=== PATIENT | male | born 1950 | race Caucasian/White ===

== ENCOUNTER 2025-04-10 18:23 | Inpatient (IN) | payer MEDICARE ==
[~2025-04-10] VITALS: Ht 187.9 cm; Wt 111.4 kg
[2025-04-10 19:02] VITALS: BP 112/77
[2025-04-10 19:18] LABS: BASO # 0.0 10*3/uL (0.0-0.1); BASO % 0.6 % (0.0-1.0); EOS # 0.1 10*3/uL (0.0-0.4); EOS % 1.2 % (1.0-4.0); MEAN CELL VOLUME 92.3 fl (80.0-94.0); MEAN CORPUSCULAR HGB 29.1 pg (27.0-31.0); MEAN PLATELET VOLUME 10.7 fl (9.6-12.3); MONO # 0.6 10*3/uL (0.1-1.0); MONO % 12.6 % (3.0-9.0); NEUT # 2.4 10*3/uL (2.3-7.9); NEUT % 50.3 % (47.0-73.0); NUCLEATED RED BLOOD CELL 0.0 % (0.0-0.0); NUCLEATED RED BLOOD CELL 0.0 10*3/uL (0.0-0.0); PLATELET COUNT AUTOMATED 118 10*3/uL (130-400); RED CELL DISTRI WIDTH 17.0 % (0-14.5)
[2025-04-10 19:30] LABS: BUN 15 mg/dl (9-23); ETHYL ALCOHOL 4.1 mg/dl (<3)
[2025-04-10 19:35] LABS: BILIRUBIN 1+ (Negative); BLOOD Negative (Negative); CLARITY Clear (Clear); COLOR Dark Yellow (Yellow); KETONE 1+ (Negative); LEUKO ESTERASE 2+ (Negative); NITRITE Negative (Negative); PH 5.5 (4.5-8.0); SPECIFIC GRAVITY >= 1.030 (1.001-1.030); UROBILINOGEN 1.0 E.U./dl (0.0-1.0)
[2025-04-10 19:42] LABS: BACTERIA 1+; MUCOUS 2+; URINE AMPHETAMINES Negative (1000ng/ml); URINE BARBITURATES Negative (200ng/ml); URINE BENZODIAZEPINES Positive (200ng/ml); URINE CANNABINOIDS (THC) Negative (50ng/ml); URINE COCAINE Negative (300ng/ml); URINE METHADONE Negative (300ng/ml); URINE OPIATES Negative (300ng/ml); URINE PHENCYCLIDINE Negative (25ng/ml); WBC 16-20 wbc/hpf (0-5)
[2025-04-10] MEDS ORDERED: Ciprofloxacin Hydrochloride 500 MG TAB PO ONE (20:05)
[2025-04-10] MEDS ORDERED: NAMENDA-5 PO (22:15)
[2025-04-10] MEDS ORDERED: METOPROLOL SUCC50 M1 PO (22:18)
[2025-04-10] MEDS ORDERED: FUROSEMIDE40 MG PO (22:31)
[2025-04-10] MEDS ORDERED: OMEPRAZOLE40 MG PO (22:34)
[2025-04-10] MEDS ORDERED: POTASSIUM CHLO10 ME5 PO (22:35)
[2025-04-10] MEDS ORDERED: ZOLOFT100 MG PO (22:36)
[2025-04-10] MEDS ORDERED: FLOMAX0.4 MG PO (22:37)
[2025-04-10] MEDS ORDERED: VISTARIL25 MG PO (22:38)
[2025-04-10] MEDS ORDERED: WARFARIN2 MG PO ×2 (22:41→22:42)
[2025-04-10] MEDS ORDERED: WELLBUTRIN XL150 MG PO (22:44)
[2025-04-10] MEDS ORDERED: ABILIFY10 MG PO (22:45)
[2025-04-10] MEDS ORDERED: LIPITOR40 MG PO (22:45)
[2025-04-10] MEDS ORDERED: BUPROPION HYDR150 M1 PO (22:46)
[2025-04-10] MEDS ORDERED: EXELON1 EAC2 PO (22:51)
[2025-04-10] MEDS ORDERED: ACETAMINOPHEN 325 MG TAB PO PRN (23:00)
[2025-04-10] MEDS ORDERED: MG-AL HYDROXIDE/SIMETICONE 30 ML UDC PO PRN (23:00)
[2025-04-10] MEDS ORDERED: LORazepam 0.5 MG TAB PO PRN (23:05)
[2025-04-10] MEDS ORDERED: Water, Sterile 10 ML VIAL IM PRN (23:05)
[2025-04-11 00:09] VITALS: BP 138/72
[2025-04-11 06:16] LABS: BASO # 0.0 10*3/uL (0.0-0.1); BASO % 0.8 % (0.0-1.0); EOS # 0.1 10*3/uL (0.0-0.4); EOS % 1.3 % (1.0-4.0); MEAN CELL VOLUME 90.5 fl (80.0-94.0); MEAN CORPUSCULAR HGB 29.1 pg (27.0-31.0); MEAN PLATELET VOLUME 10.6 fl (9.6-12.3); MONO # 0.6 10*3/uL (0.1-1.0); MONO % 11.6 % (3.0-9.0); NEUT # 2.8 10*3/uL (2.3-7.9); NEUT % 51.6 % (47.0-73.0); NUCLEATED RED BLOOD CELL 0.0 % (0.0-0.0); NUCLEATED RED BLOOD CELL 0.0 10*3/uL (0.0-0.0); PLATELET COUNT AUTOMATED 123 10*3/uL (130-400); RED CELL DISTRI WIDTH 17.2 % (0-14.5)
[2025-04-11 07:23] LABS: BUN 13 mg/dl (9-23); SGPT/ALT 26 U/L (5-49)
[2025-04-11 08:14] LABS: VITAMIN D, 25-HYDROXY 21.9 ng/mL (30-100)
[2025-04-11] MEDS ORDERED: DEPAKOTE SPRIN125 MG PO (08:22)
[2025-04-11] MEDS ORDERED: Menthol/Zinc Oxide 4 GM THIN T SCH (09:00)
[2025-04-11] MEDS ORDERED: CEFDINIR 300 MG CAP PO SCH (09:00)
[2025-04-11] MEDS ORDERED: Memantine Hydrochloride 5 MG TAB PO SCH (10:00)
[2025-04-11] MEDS ORDERED: FUROSEMIDE 40 MG TAB PO SCH (10:00)
[2025-04-11] MEDS ORDERED: RIVASTIGMINE 13.3 MG/24 HR TDM T SCH (10:00)
[2025-04-11] MEDS ORDERED: ATORVASTATIN CALCIUM 40 MG TABLET PO SCH (10:00)
[2025-04-11] MEDS ORDERED: METOPROLOL SUCCINATE XR 50 MG TAB PO SCH (10:00)
[2025-04-11] MEDS ORDERED: risperiDONE 0.5 MG TAB PO SCH (10:00)
[2025-04-11 20:00] VITALS: BP 147/108
[2025-04-12 08:37] VITALS: BP 144/96
[2025-04-12] MEDS ORDERED: AQUAPHOR OINTMENT Base 50 GM TUBE T SCH (09:00)
[2025-04-12 10:16] LABS: BUN 16 mg/dl (9-23)
[2025-04-12] MEDS ORDERED: WARFARIN SODIUM 2 MG TAB PO SCH (18:00)
[2025-04-12 20:00] VITALS: BP 10/87
[2025-04-13 08:00] VITALS: BP 116/75
[2025-04-13 08:32] LABS: BUN 25 mg/dl (9-23)
[2025-04-13] MEDS ORDERED: Cholecalciferol 5,000 IU CAP (125 MCG) PO SCH (09:00)
[2025-04-13] MEDS ORDERED: PALIPERIDONE PALMITATE 156 MG INJECTION IM ONE (09:35)
[2025-04-13] MEDS ORDERED: WARFARIN SODIUM 2.5 MG TAB PO SCH (18:00)
[2025-04-13] MEDS ORDERED: WARFARIN SODIUM 2 MG TAB PO SCH (18:00)
[2025-04-13 20:00] VITALS: BP 120/69
[2025-04-14] MEDS ORDERED: Trihexyphenidyl Hydrochlorid 2 MG TAB PO SCH (09:00)
[2025-04-14 09:17] VITALS: BP 105/67
[2025-04-14 20:00] VITALS: BP 145/93
[2025-04-15 06:51] LABS: BUN 24 mg/dl (9-23)
[2025-04-15 08:00] VITALS: BP 136/69
[2025-04-15 20:00] VITALS: BP 116/70
[2025-04-16 08:00] VITALS: BP 100/49
[2025-04-16] MEDS ORDERED: WARFARIN SODIUM 3 MG TAB PO SCH (18:00)
[2025-04-16 20:00] VITALS: BP 93/58
[2025-04-17 06:26] LABS: BUN 22 mg/dl (9-23)
[2025-04-17 08:02] VITALS: BP 95/63
[2025-04-17 20:00] VITALS: BP 104/64
[2025-04-18 08:04] VITALS: BP 104/75
[2025-04-18] MEDS ORDERED: PALIPERIDONE PALMITATE 156 MG INJECTION IM SCH (09:35)
[2025-04-18 20:00] VITALS: BP 104/60
[2025-04-19 06:21] LABS: BASO # 0.1 10*3/uL (0.0-0.1); BASO % 0.8 % (0.0-1.0); EOS # 0.1 10*3/uL (0.0-0.4); EOS % 1.3 % (1.0-4.0); MEAN CELL VOLUME 91.9 fl (80.0-94.0); MEAN CORPUSCULAR HGB 29.5 pg (27.0-31.0); MEAN PLATELET VOLUME 9.9 fl (9.6-12.3); MONO # 0.8 10*3/uL (0.1-1.0); MONO % 13.8 % (3.0-9.0); NEUT # 3.6 10*3/uL (2.3-7.9); NEUT % 59.0 % (47.0-73.0); NUCLEATED RED BLOOD CELL 0.0 % (0.0-0.0); NUCLEATED RED BLOOD CELL 0.0 10*3/uL (0.0-0.0); PLATELET COUNT AUTOMATED 135 10*3/uL (130-400); RED CELL DISTRI WIDTH 17.2 % (0-14.5)
[2025-04-19 06:47] LABS: BUN 23 mg/dl (9-23); SGPT/ALT 32 U/L (5-49)
[2025-04-19] MEDS ORDERED: LORazepam 1 MG TAB PO PRN (18:05)
[2025-04-19] MEDS ORDERED: hydrOXYzine hydrochloride 50 MG/ML VIAL IM PRN (18:05)
[2025-04-19 20:00] VITALS: BP 179/100
[2025-04-19] MEDS ORDERED: VITAMIN D3125 MC1 PO (21:21)
[2025-04-19] MEDS ORDERED: TRIHEXYPHENIDYL2 M3 PO (21:21)
[2025-04-19] MEDS ORDERED: INVEGA SUSTENN156 MG IM (21:21)
[2025-04-19] MEDS ORDERED: RIVASTIGMINE1 EAC2 T (21:21)
[2025-04-19] MEDS ORDERED: NAMENDA-5 PO (21:21)
[2025-04-19 22:08] LABS: BILIRUBIN 1+ (Negative); BLOOD 2+ (Negative); CLARITY Clear (Clear); COLOR Dark Yellow (Yellow); KETONE 1+ (Negative); LEUKO ESTERASE 1+ (Negative); NITRITE Negative (Negative); PH 6.0 (4.5-8.0); SPECIFIC GRAVITY 1.025 (1.001-1.030); UROBILINOGEN 1.0 E.U./dl (0.0-1.0)
[2025-04-19 22:15] LABS: BACTERIA 1+; MUCOUS 2+; RBC 21-30 rbc/hpf (0-2)
[2025-04-20 07:18] LABS: BASO # 0.0 10*3/uL (0.0-0.1); BASO % 0.5 % (0.0-1.0); EOS # 0.0 10*3/uL (0.0-0.4); EOS % 0.5 % (1.0-4.0); MEAN CELL VOLUME 91.7 fl (80.0-94.0); MEAN CORPUSCULAR HGB 29.3 pg (27.0-31.0); MEAN PLATELET VOLUME 10.8 fl (9.6-12.3); MONO # 0.8 10*3/uL (0.1-1.0); MONO % 12.0 % (3.0-9.0); NEUT # 4.7 10*3/uL (2.3-7.9); NEUT % 70.8 % (47.0-73.0); NUCLEATED RED BLOOD CELL 0.0 % (0.0-0.0); NUCLEATED RED BLOOD CELL 0.0 10*3/uL (0.0-0.0); PLATELET COUNT AUTOMATED 139 10*3/uL (130-400); RED CELL DISTRI WIDTH 17.2 % (0-14.5)
[2025-04-20 07:43] LABS: BUN 21 mg/dl (9-23)
[2025-04-20 08:00] VITALS: BP 101/82
[2025-04-20] MEDS ORDERED: Coumadin3 MG PO (11:46)
[2025-04-20] MEDS ORDERED: VITAMIN E 400 IU CAP PO SCH ×2 (14:25→15:46)
[2025-04-20 20:00] VITALS: BP 117/94
[2025-04-20] MEDS ORDERED: Trihexyphenidyl Hydrochlorid 2 MG TAB PO SCH (21:00)
[2025-04-21 08:00] VITALS: BP 153/126
[2025-04-21] MEDS ORDERED: WARFARIN SODIUM 2.5 MG TAB PO SCH (18:00)
[2025-04-21 20:00] VITALS: BP 149/84
[2025-04-21] MEDS ORDERED: RAMELTEON 8 MG TAB PO SCH (21:00)
[2025-04-22 08:00] VITALS: BP 131/96
[2025-04-22 20:00] VITALS: BP 119/86
[2025-04-23 08:00] VITALS: BP 104/83
[2025-04-23] MEDS ORDERED: VITAMIN E180 M1 PO (17:21)
[2025-04-23] MEDS ORDERED: WARFARIN SOD2 MG PO (17:21)
[2025-04-23] MEDS ORDERED: METOPROLOL TART50 M1 PO (17:21)
[2025-04-23] MEDS ORDERED: WARFARIN SODIUM 2 MG TAB PO SCH (18:00)
[2025-04-23 20:00] VITALS: BP 139/89
[2025-04-24] MEDS ORDERED: WARFARIN2 MG PO ×2 (07:32→07:35)
[2025-04-24 08:00] VITALS: BP 99/74
[2025-04-24] MEDS ORDERED: RAMELTEON8 MG PO (08:56)
[2025-04-24] MEDS ORDERED: HYDROXYZINE PAM25 M1 PO (08:56)
== END 2025-04-24 11:12 | DRG 883 ==
LOC: ED 18:23 → 3N 20:14
PROVIDERS: Counselor Professional; Emergency Medicine; Internal Medicine; Registered Nurse; Student in an Organized Health Care Education/Training Program; ADMIT Psychiatry & Neurology Psychiatry; ATTEND Psychiatry & Neurology Psychiatry
PROC: GZHZZZZ Group Psychotherapy (ICD-10-PCS; principal; 2025-04-10)
PROC: GZ51ZZZ Individual Psychotherapy, Behavioral (ICD-10-PCS; 2025-04-10)
DX: F63.81 Intermittent explosive disorder (principal); E43 Unspecified severe protein-calorie malnutrition; I11.0 Hypertensive heart disease with heart failure; G93.41 Metabolic encephalopathy; F02.818 Dementia in other diseases classified elsewhere, unspecified severity, with other behavioral disturbance; N30.00 Acute cystitis without hematuria; E87.0 Hyperosmolality and hypernatremia; G30.9 Alzheimer's disease, unspecified; E87.8 Other disorders of electrolyte and fluid balance, not elsewhere classified; I48.91 Unspecified atrial fibrillation; I50.9 Heart failure, unspecified; E78.2 Mixed hyperlipidemia; D69.6 Thrombocytopenia, unspecified; R73.9 Hyperglycemia, unspecified; R80.9 Proteinuria, unspecified; R80.0 Isolated proteinuria; R82.4 Acetonuria; R82.71 Bacteriuria; F31.9 Bipolar disorder, unspecified; R33.8 Other retention of urine; N40.1 Benign prostatic hyperplasia with lower urinary tract symptoms; G47.33 Obstructive sleep apnea (adult) (pediatric); Z79.01 Long term (current) use of anticoagulants; Z68.33 Body mass index [BMI] 33.0-33.9, adult